=== PATIENT | female | born 1965 | race Caucasian/White ===

== ENCOUNTER 2022-12-17 10:01 | Outpatient (REF) | payer BC, SELFPAY ==
--- NOTE | ~2022-12-17 | CT_ITS ---
EXAMINATION: CT SINUS WITHOUT CONTRAST CLINICAL INFORMATION: Nasal polyps and deviated nasal septum COMPARISON: None available. TECHNIQUE: Axial 2 mm thin and reformatted 2 mm thin sagittal and coronal images of sinuses were obtained. This CT examination was performed using dose optimization techniques as appropriate, variously including the following: *Automated exposure control *Adjustment of mA and/or kV according to patient size (this includes techniques or standardized protocols for targeted exams where dose is matched to indication/reason for exam; i.e. extremities or head) *Use of iterative reconstruction technique DLP: 77 mGy-cm FINDINGS: There is normal aeration of paranasal sinuses without mucoperiosteal thickening. The ostiomeatal complex and frontoethmoidal recess are widely patent. The bony sinus [place] are intact. The nasal septum is midline and widely patent nasopharyngeal and nasal cavity airway. The bony orbits and the soft tissues are normal. Bilateral TM joints are symmetric and normal. Visualized maxillofacial, nasal bone and mandible appears intact. The soft tissues are normal. The mastoid air cells are well-aerated. CT/CT sinus wo IV con IMPRESSION: Unremarkable sinus examination.
== END 2022-12-17 10:02 | disposition home or self-care (01) ==
LOC: HO.CT 10:01
PROVIDERS: PCP Internal Medicine; Visit Provider Otolaryngology
DX: J33.0 Polyp of nasal cavity (principal); J34.2 Deviated nasal septum
CPT/HCPCS: 70486